=== PATIENT | female | born 1935 | race Caucasian/White ===

== ENCOUNTER 2018-01-11 15:18 | Emergency (ER) | payer OTHER ==
[~2018-01-11] VITALS: Ht 147.3 cm; Wt 72.1 kg
[2018-01-11] MEDS ORDERED: PRINIVIL20 MG PO (15:32)
[2018-01-11] MEDS ORDERED: AMILORIDE HCL-1 EACH PO (15:33)
[2018-01-11] MEDS ORDERED: AMITRIPTYLINE100 MG PO (15:34)
[2018-01-11] MEDS ORDERED: KLOR-CON 1010 MEQ PO (15:34)
[2018-01-11 16:23] LABS: ABSOLUTE BASOPHILS 0.1 thou/uL (0.0-0.2); ABSOLUTE EOSINOPHILS 0.3 thou/uL (0.0-0.7); ABSOLUTE NEUTROPHILS 9.5 thou/uL (1.6-8.1); BASOPHILS 0.7 %; EOSINOPHILS 2.1 %; HEMATOCRIT 38.8 % (37.0-47.0); HEMOGLOBIN 12.7 gm/dL (12.0-15.0); LYMPHOCYTES 15.7 %; MCHC 32.7 g/dL (28.0-37.0); MCV 91.7 fL (80.0-100.0); MONOCYTES 7.6 %; MPV 10.3 fl. (7.2-11.1); NUCLEATED RBCS 0 /100WBC; PLATELET COUNT* 140 thou/uL (150-400); POLYS 73.9 %; RBC 4.23 mil/uL (4.20-5.00); RDW-CV 14.7 % (10.5-14.5); WBC 12.8 thou/uL (4.0-11.0)
[2018-01-11 16:27] LABS: CALCIUM 8.8 mg/dL (8.5-10.1); CREATININE 2.7 mg/dL (0.6-1.3); POTASSIUM 4.1 mmol/L (3.5-5.1)
[2018-01-11 16:32] LABS: ALBUMIN 3.4 g/dL (3.4-5.0); TOTAL BILIRUBIN 0.5 mg/dL (<0.1-1.0); TOTAL PROTEIN 7.5 g/dL (6.4-8.2)
[2018-01-11 17:22] LABS: URINE BILIRUBIN NEGATIVE (Negative); URINE BLOOD NEGATIVE (Negative); URINE CLARITY CLEAR; URINE COLOR YELLOW; URINE GLUCOSE-RANDOM NEGATIVE (Negative); URINE KETONES NEGATIVE (Negative); URINE NITRITE-REFLEX NEGATIVE (Negative); URINE PROTEIN NEGATIVE (Negative); URINE SPECIFIC GRAVITY >= 1.030 (1.005-1.030); URINE UROBILINOGEN 0.2 E.U./dl (0.2-1.0)
[2018-01-11 17:23] LABS: URINE LEUKOCYTES-REFLEX 2+ (Negative)
[2018-01-11 17:28] LABS: BACTERIA-REFLEX >30 Many /HPF (None Seen); CASTS None Seen /LPF (None Seen); CRYSTALS None Seen /LPF (None Seen); SQUAMOUS >10 Many /LPF (0-3); URINE RBC 3-10 Few /HPF (0-2)
[2018-01-11] MEDS ORDERED: KEFLEX500 M1 PO (17:32)
[2018-01-11 17:53] VITALS: BP 116/44
--- NOTE | 2018-01-12 17:03 | EKG ---
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 : 1935 Requested By: Ita Velez Order Number: [id number] MD: Nader Quintana Measurements Intervals [place] Rate: 95 P: 24 RI: 183 QRS: -20 QRSD: 89 T: 69 QT: 401 QTc: 504 Interpretive Statements Sinus rhythm Inferior infarct, old Abnormal lateral Q waves Anterior infarct, old Prolonged QT interval No previous ECG available for comparison Electronically Signed On 01-12-2018 17:03:10 CDT by Nader Quintana [email or web address] <ELECTRONICALLY SIGNED> By: Nader Quintana MD, [facility] 01/12/18 1703 1558 1558 Nader Quintana MD, FAC /EPI
== END 2018-01-11 17:54 ==
LOC: M.ERS 15:18
PROVIDERS: Personal Emergency Response Attendant
DX: N39.0 Urinary tract infection, site not specified (principal); J45.909 Unspecified asthma, uncomplicated

== ENCOUNTER 2018-12-21 06:33 | Inpatient (IN) | payer OTHER ==
[~2018-12-21] VITALS: Ht 147.3 cm; Wt 74.4 kg
[~2018-12-21 06:33] MED LIST: AMILORIDE HCL-1 EACH PO; AMITRIPTYLINE100 MG PO; KEFLEX500 M1 PO; KLOR-CON 1010 MEQ PO; PRINIVIL20 MG PO
[2018-12-21 06:34] VITALS: BP 150/80
[2018-12-21 06:57] LABS: ABSOLUTE BASOPHILS 0.1 thou/uL (0.0-0.2); ABSOLUTE EOSINOPHILS 0.3 thou/uL (0.0-0.7); ABSOLUTE LYMPHOCYTES 1.4 thou/uL (0.8-5.3); ABSOLUTE MONOCYTES 0.8 thou/uL (0.0-1.2); ABSOLUTE NEUTROPHILS 7.2 thou/uL (1.6-8.1); EOSINOPHILS 2.7 %; HEMATOCRIT 33.8 % (37.0-47.0); HEMOGLOBIN 10.9 gm/dL (12.0-15.0); LYMPHOCYTES 13.9 %; MCH 29.5 pg (26.0-34.0); MCHC 32.3 g/dL (28.0-37.0); MCV 91.3 fL (80.0-100.0); MONOCYTES 8.5 %; NUCLEATED RBCS 0 /100WBC; PLATELET COUNT* 215 thou/uL (150-400); POLYS 73.9 %; RBC 3.71 mil/uL (4.20-5.00); RDW-CV 15.3 % (10.5-14.5); WBC 9.7 thou/uL (4.0-11.0)
[2018-12-21 07:00] LABS: ANION GAP 14 mmol/L (7-16); BUN 18 mg/dL (7-18); CALCIUM 8.4 mg/dL (8.5-10.1); CHLORIDE 102 mmol/L (98-107); CO2 24 mmol/L (21-32); CREATININE 1.6 mg/dL (0.6-1.3); GLUCOSE 183 mg/dL (70-99); POTASSIUM 3.1 mmol/L (3.5-5.1); SODIUM 140 mmol/L (136-145)
[2018-12-21 07:04] LABS: INR 1.2; PROTIME 12.7 Seconds (9.20-11.50)
[2018-12-21 07:11] LABS: ALBUMIN 2.8 g/dL (3.4-5.0); ALKALINE PHOSPHATASE 83 U/L (46-116); NT-PRO BRAIN NAT PEPTIDE 13669 pg/mL (<300); SGOT 18 U/L (15-37); SGPT 13 U/L (30-65); TOTAL BILIRUBIN 0.8 mg/dL (<0.1-1.0); TOTAL PROTEIN 7.2 g/dL (6.4-8.2); TROPONIN-I LEVEL <0.06 ng/mL (<0.06)
--- NOTE | 2018-12-21 08:24 | NUR ---
REPORT GIVEN TO DYLAN MORALES WHO IS TO ASSUME PT CARE INPATIENT NURSE.
[2018-12-21 08:25] VITALS: BP 123/71
[2018-12-21 08:40] VITALS: BP 164/78
[2018-12-21 15:32] VITALS: BP 126/54
--- NOTE | 2018-12-21 19:53 | NUR ---
I ASSUMED CARE OF THE PATIENT AT 0820 AN ADMISSION FROM ED. SHE IS ALERT AND ORIENTED X4 AND IS UP WITH ASSIST OF 1, BUT IS CURRENTLY ON BEDREST. SHE HAS BEEN SHORT OF AIR SINCE SATURDAY, AND HAS NO CHEST PAIN. SHE HAS A DVT IN HER LEFT LEG AND SHE IS ON BEDREST (SEE RADIOLOGY REPORT). SHE IS ALLOWED TO USE THE COMMODE. HER DAUGHTER IS THE DON AT [facility]. PATIENT EATS WELL AND IS ON 4 LITERS OF OXYGEN. WILL CONTINUE TOMORROW.
[2018-12-21 19:55] VITALS: BP 131/68
[2018-12-22] VITALS: BP 112/52
[2018-12-22 04:00] VITALS: BP 119/68
--- NOTE | 2018-12-22 05:12 | NUR ---
PATIENT PROGRESSING TOWARDS GOALS: PATIENT STATES "LEFT LEG SWELLING IS IMPROVED." DENIES PAIN EXCEPT WHEN TRANSFERRING TO BSC. PATIENT'S SOA ALSO IMPROVED AND O2 SATURATION MAINTAINED >92% ON 4L O2 NC. ELECTROLYTES BEING REPLACED AND REDRAWN PER PROTOCOL. PATIENT AWARE OF PLAN OF CARE AND VERBALIZES UNDERSTANDING. CALL LIGHT WITHIN REACH
[2018-12-22 08:30] VITALS: BP 130/60
[2018-12-22 09:11] LABS: HEMATOCRIT 31.7 % (37.0-47.0); HEMOGLOBIN 10.5 gm/dL (12.0-15.0); MCHC 33.1 g/dL (28.0-37.0); MCV 90.5 fL (80.0-100.0); MPV 8.8 fl. (7.2-11.1); NUCLEATED RBCS 0 /100WBC; PLATELET COUNT* 239 thou/uL (150-400); RDW-CV 15.4 % (10.5-14.5); WBC 11.8 thou/uL (4.0-11.0)
[2018-12-22 09:20] LABS: CALCIUM 7.9 mg/dL (8.5-10.1); CREATININE 1.8 mg/dL (0.6-1.3); POTASSIUM 4.4 mmol/L (3.5-5.1)
[2018-12-22 10:14] LABS: ABSOLUTE LYMPHOCYTES 1.2 thou/uL (0.8-5.3); ABSOLUTE MONOCYTES 0.2 thou/uL (0.0-1.2); ABSOLUTE NEUTROPHILS 10.4 thou/uL (1.6-8.1); PLATELET ESTIMATE ADEQUATE
[2018-12-22 12:00] VITALS: BP 112/54
--- NOTE | 2018-12-22 13:34 | NUR ---
Pt is A&O. Resides at home alone. Independent. Supportive family. No home o2. Hx of HH. No hx of SNF. Goal is home at dc. Following.
--- NOTE | 2018-12-22 13:36 | 2DMMODE ---
[place] [address] 2 D/M-MODE ECHOCARDIOGRAM Name: GIGI JONES Room: [address] IN .R.#: [id number] Admission: 12/21/18 Attend Phys: Sathish Luque, Discharge: Date of : 37 Date of Service: 12/22/18 1336 Report #: [id number] THIS REPORT FOR: //name// APPROVED REPORT Study performed: 12/22/2018 10:33:40 EXAM: Comprehensive 2D, Doppler, and color-flow Echocardiogram Patient Location: Bedside BSA: 1.63 HR: 91 bpm BP: 119/68 mmHg Other Information Study Quality: Fair Indications Congestive Heart Failure 2D Dimensions IVSd: 15.18 (7-11mm) LVOT Diam: 17.45 (18-24mm) LVDd: 53.62 mm PWd: 16.06 (7-11mm) Ascending Ao: 32.79 (22-36mm) LVDs: 39.87 (25-40mm) Aortic Root: 29.48 mm Volumes Left Atrial Volume (Systole) LA ESV Index: 33.10 mL/m2 Aortic Valve AoV Peak Juan.: 1.01 m/s AO Peak Gr.: 4.12 mmHg LVOT Max P.32 mmHg AO Mean Gr.: 2.38 mmHg LVOT Mean P.80 mmHg LVOT Max V: 0.57 m/s AO V2 VTI: 21.31 cm LVOT Mean V: 0.42 m/s GEM (VTI): 1.44 cm2 LVOT V1 VTI: 12.80 cm Mitral Valve E/A Ratio: 0.97 MV Decel. Time: 209.27 ms MV E Max Juan.: 1.03 m/s MV PHT: 60.69 ms MVA (PHT): 3.63 [place] [address] 2 D/M-MODE ECHOCARDIOGRAM Name: GIGI JONES Room: [address] IN ..#: [id number] Admission: 12/21/18 Attend Phys: Sathish Luque, Discharge: Date of : 37 Date of Service: 12/22/18 1336 Report #: [id number] TDI E/Lateral E': 10.30 E/Medial E': 12.88 Medial E' Juan.: 0.08 m/s Lateral E' Juan.: 0.10 m/s Pulmonary Valve PV Peak Juan.: 0.73 m/s PV Peak Gr.: 2.13 mmHg Tricuspid Valve RAP Estimate: 5.00 mmHg TR Peak Gr.: 35.96 mmHg RVSP: 40.96 mmHg PA Pressure: 40.96 mmHg Left Ventricle The left ventricle is normal size. severe hypokinesis of the distal anteroseptal wall and apex Mild concentric left ventricular hypertrophy. Left ventricular systolic function is moderately decreased. Left ventricular apical thrombus. LVEF is 35-40%. Right Ventricle The right ventricle is normal size. The right ventricular systolic function is normal. Atria Left atrium is mildly dilated. Interatrial septum not well visualized. The right atrium size is normal. Aortic Valve The Aortic valve is sclerotic. No aortic regurgitation is present. There is no aortic valvular stenosis. Mitral Valve Mitral valve leaflets are mildly thickened. Moderate mitral regurgitation. No evidence of mitral valve stenosis. Tricuspid Valve The tricuspid valve is normal in structure. Mild tricuspid regurgitation. estimated pa pressure 40 mm Hg Pulmonic Valve The pulmonary valve is normal in structure. There is no pulmonic valvular regurgitation. Great Vessels The aortic root is normal in size[place] [address] 2 D/M-MODE ECHOCARDIOGRAM Name: GIGI JONES Room: [address] IN [facility]#: [id number] Admission: 12/21/18 Attend Phys: Sathish Luque, Discharge: Date of : 37 Date of Service: 12/22/18 1336 Report #: [id number] visualized. Pericardium There is no pericardial effusion. <Conclusion> Mild concentric left ventricular hypertrophy. severe hypokinesis of the distal anteroseptal wall and apex Left ventricular apical thrombus. LVEF is 35-40%. Left atrium is mildly dilated. The Aortic valve is sclerotic. Moderate mitral regurgitation. Mild tricuspid regurgitation. estimated pa pressure 40 mm Hg <ELECTRONICALLY SIGNED> By: Rich Robles MD, [facility] 12/22/18 1336 1336 1336 Rich Robles MD, FAC /INF
--- NOTE | 2018-12-22 14:34 | NUR ---
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 WOUND MEASURES 1.3X1X0.3. MOIST RED, NON-GRANULAR WOUND BED TO APPROXIMATELY 60%, 40% YELLOW, NON-VIABLE TISSUE. CHRISTI-WOUND INTACT. CLEANSED WITH WOUND CLEANSER, PATTED DRY. SKIN PREPPED. APPLIED AQUACEL AG TO WOUND BED AND COVERED WITH EXUDERM THEN TEGADERM. TOLERATED DRESSING CHANGE WELL. EDUCATED PATIENT ON DRESSING SELECTION, TURNING, AND NUTRITION FOR WOUND HEALING, COMMUNICATED UNDERSTANDING. PATIENT TURNED HERSELF TO THE RIGHT SIDE APPRORPIATELY OFFLOADING THE AREA. RECOMMEND Q3 DAY DRESSING CHANGES FOLLOW UP IN WOUND CENTER IF NEEDED ENCOURAGE GOOD NUTRTION/HYDRATION FOR WOUND HEALING TURN Q2 HOURS, KEEP OFF WOUND LIMIT LAYERS OF LINEN UNDER PATIENT LIMIT HOB <30 DEGREES IF PATIENT CAN TOLERATE
--- NOTE | 2018-12-22 14:46 | EKG ---
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: : 1935 Requested By: Peri Bullock Order Number: [id number] MD: Rich Robles Measurements Intervals [place] Rate: 111 P: 20 SC: 153 QRS: 5 QRSD: 96 T: 7 QT: 360 QTc: 489 Interpretive Statements Sinus tachycardia Abnormal inferior Q waves Anterior infarct, old Borderline ST depression, lateral leads Compared to ECG 01/11/2018 15:58:36 Sinus rhythm no longer present Prolonged QT interval no longer present Myocardial infarct finding still present Electronically Signed On 12-22-2018 14:46:26 CDT by Rich Robles [email or web address] <ELECTRONICALLY SIGNED> By: Rich Robles MD, [facility] 12/22/18 1446 0639 0639 Rich Robles MD, [facility] /EPI
[2018-12-22 16:39] VITALS: BP 126/48
--- NOTE | 2018-12-22 19:15 | NUR ---
PT REMAINS FREE OF PAIN, ON BEDREST, ONLY UP TO BSC. IV REMAINS IN RIGHT HAND, MAG INFUSING PER PROTOCOL. CALLS APPROPRIATLY FOR NEEDS. WILL CONTINUE TO MONITIOR.
[2018-12-22 19:50] VITALS: BP 134/74
[2018-12-22 20:58] LABS: URINE BILIRUBIN NEGATIVE (Negative); URINE BLOOD TRACE (Negative); URINE CLARITY CLEAR; URINE COLOR YELLOW; URINE GLUCOSE-RANDOM NEGATIVE (Negative); URINE KETONES NEGATIVE (Negative); URINE LEUKOCYTES-REFLEX NEGATIVE (Negative); URINE NITRITE-REFLEX NEGATIVE (Negative); URINE PROTEIN NEGATIVE (Negative); URINE SPECIFIC GRAVITY 1.025 (1.005-1.030); URINE UROBILINOGEN 0.2 E.U./dl (0.2-1.0)
[2018-12-23] VITALS: BP 113/59
[2018-12-23 04:00] VITALS: BP 121/76
--- NOTE | 2018-12-23 05:30 | NUR ---
PT CARE ASSUMED AT 1930. SAT MAINTIANED IN O2. GETS SOB WITH EXERTION. CALL LIGHT WITHIN REACH AND BED IN LOW POSITION. C/O PAIN, MEDICATION GIVEN PER EMAR. HOURLY ROUNDING DONE FOR PT SAFETY.
[2018-12-23 05:48] LABS: ANION GAP 11 mmol/L (7-16); BUN 46 mg/dL (7-18); CALCIUM 8.5 mg/dL (8.5-10.1); CHLORIDE 101 mmol/L (98-107); CHOLESTEROL 206 mg/dL (<200); CO2 26 mmol/L (21-32); CREATININE 1.8 mg/dL (0.6-1.3); GLUCOSE 201 mg/dL (70-99); HDL CHOLESTEROL 36 mg/dL (>40); LDL CHOLESTEROL 148 mg/dL (<100); POTASSIUM 4.5 mmol/L (3.5-5.1); SODIUM 138 mmol/L (136-145); TC:HDL 5.7 Ratio (Not establshd); TRIGLYCERIDE 114 mg/dL (<150); VLDL 23 mg/dL (<40)
[2018-12-23 05:50] LABS: SERUM ASSESSMENT Clear
[2018-12-23 08:00] VITALS: BP 136/69
--- NOTE | 2018-12-23 11:18 | NUR ---
Nutrition: Pt assessed for stage III wound on buttocks. Wt: 163#. 2gm Na diet. RX: lisinopril, statin, insulin. H/o DM, HLD, HTN, CKD. Labs: BUN 46, cr 1.8, GFR 27, alb 2.8, prealb 11.6, BG 179. Good appetite. RD will not order protein supplements at this time d/t renal FXN. GOALS: continue with good HBV protein at meal times, tight BG control for wound healing. Mild risk.
[2018-12-23 11:30] VITALS: BP 139/65
--- NOTE | 2018-12-23 14:01 | CON ---
[address] [address] CONSULTATION Name: GIGI JONES Room: [address] IN ..#: [id number] Admission: 12/21/18 Attend Phys: Sathish Luque MD Discharge: Date of : 37 Report #: [id number] THIS REPORT FOR: //name// CC: Sathish Begum DO DATE OF SERVICE: 12/22/2018 CARDIOLOGY CONSULTATION HISTORY OF PRESENT ILLNESS: The patient is an 83-year-old single white female who I was asked to see in the hospital today after she complained of being short of breath. The patient has a history of asthma and uses an inhaler periodically. She recently went on a car ride to [place]. When she returned, she noticed some swelling of her left foot and some pain in her left groin. Because of the increasing shortness of breath, she finally came to the Emergency Room yesterday and was admitted. She has noticed a cough. She denies a history of myocardial infarction or chest pain. She has had no racing of her heart or syncope. PAST MEDICAL HISTORY: Significant for hysterectomy, removal of breast cyst, and hypertension. MEDICATIONS: On admission yesterday consisted of amiloride, hydrochlorothiazide, amitriptyline, lisinopril and potassium. ALLERGIES: SHE HAS AN ALLERGY TO AN ANTIBIOTIC. FAMILY HISTORY: Father had congestive heart failure. SOCIAL HISTORY: She is , lives in [place], [place] by herself. No smoking. No alcohol abuse. REVIEW OF SYSTEMS: She has had no history of stroke, liver disease, kidney disease, cancer, psychiatric illness or chronic skin condition. She does wear glasses. PHYSICAL EXAMINATION: GENERAL: Revealed an elderly female lying in bed. She appeared in no distress. VITAL SIGNS: Show blood pressure 130/70 and pulse is 90. She is afebrile. HEENT: She was anicteric. Conjunctivae are pink. Mucous membranes moist. NECK: Veins do not appear distended. No carotid bruits. Neck supple. CHEST: Clear to auscultation. CARDIOVASCULAR: Regular rate and rhythm. ABDOMEN: [place] [address] CONSULTATION Name: GIGI JONES Room: [address]#: [id number] Admission: 12/21/18 Attend Phys: Sathish Luque MD Discharge: Date of : 37 Report #: [id number] EXTREMITIES: She has had no pitting edema. Dorsalis pedis pulse cannot be palpated. SKIN: Cool and dry. NEUROLOGICAL: Nonfocal. LYMPHATIC: No adenopathy. MUSCULOSKELETAL: No joint effusion. RADIOLOGICAL DATA: Her ECG on admission showed a sinus rhythm, evidence of previous anterior infarction. Her workup in the hospital, she actually had an echocardiogram done earlier today that showed an ejection fraction of 40%, left ventricular hypertrophy, anteroseptal and apical severe hypokinesis, apical thrombus noted, left atrial enlargement, aortic sclerosis and moderate mitral regurgitation. Her x-rays, she had a portable chest x-ray on admission yesterday that showed normal heart size, tortuous ____, and pulmonary vascular congestion. She had a V/Q scan of the lungs yesterday that showed no evidence of pulmonary embolus. Venous duplex scan of her legs done yesterday showed left lower extremity DVT from the left common into the femoropopliteal vein. No evidence of right leg DVT. LABORATORY DATA: Sodium 139, BUN 38, and creatinine 1.8, it was actually 2.7 a year ago. Her troponin 0.06. BNP 13,669. TSH 1.8. White blood cell count 9.8, hemoglobin 10.5, and hematocrit 31.7. Her iron saturation 11% and ferritin 234. IMPRESSION AND RECOMMENDATIONS: 1. Deep venous thrombosis. Recommend anticoagulation. 2. Evidence of previous anterior infarction. I would recommend a beta nae and ARB . In light of her advanced age, I would not recommend stress testing. The patient has no history of angina. 3. Anemia. No history of bleeding. 4. Hypertension. The patient has been on an ARB and diuretic. <ELECTRONICALLY SIGNED> By: Rich Robles MD, FACC 12/23/18 1401 1528 [id number] Robles MD, FACC /nt
--- NOTE | 2018-12-23 15:30 | NUR ---
Spoke with Pt regarding disposition, Pt wants to dc to [facility] for skilled, Pt's dtr is the DON there, informed Pt that [facility] is not in network with her insurance. Spoke with the business office at [facility], they are to check and see if [employer] would all a once time contract. Discussed options, Pt requested that CM fax a SNF referral to [facility]. CM to fax therapy evals once complete. Anticipate that Pt will be ready to dc soon.
[2018-12-23 16:00] VITALS: BP 125/65
[2018-12-23 19:50] VITALS: BP 135/64
--- NOTE | 2018-12-23 20:01 | NUR ---
ASSUMED PT CARE AT 07, FULL ASSESMENT DONE CHARTED. PT A/O X4, ANXIOUS AT TIMES. UP WITH ASSIST TO BSC, SOA WITH ACTIVITY. VSS, SR ON THE . WOUND DRESSING IN TACT. PT REPOSITIONS SELF IN BED. PT HOPEFUL TO DC TO [facility] TOMORROW. REPORT GIVEN TO MADDI RICHARDSON.
[2018-12-24] VITALS: BP 142/72
[2018-12-24 04:00] VITALS: BP 141/66
[2018-12-24 04:08] LABS: GLYCOHEMOGLOBIN (HGB A1C) 7.2 % (4.8-5.6)
[2018-12-24 04:53] LABS: ABSOLUTE LYMPHOCYTES 0.8 thou/uL (0.8-5.3); ABSOLUTE MONOCYTES 0.4 thou/uL (0.0-1.2); ABSOLUTE NEUTROPHILS 11.7 thou/uL (1.6-8.1); BASOPHILS 0.1 %; HEMATOCRIT 31.5 % (37.0-47.0); HEMOGLOBIN 10.1 gm/dL (12.0-15.0); LYMPHOCYTES 6.3 %; MCV 90.8 fL (80.0-100.0); MONOCYTES 2.9 %; MPV 9.6 fl. (7.2-11.1); NUCLEATED RBCS 0 /100WBC; PLATELET COUNT* 278 thou/uL (150-400); POLYS 90.7 %; RBC 3.47 mil/uL (4.20-5.00); RDW-CV 15.4 % (10.5-14.5); WBC 12.9 thou/uL (4.0-11.0)
[2018-12-24 05:10] LABS: ALBUMIN 2.6 g/dL (3.4-5.0); CREATININE 1.7 mg/dL (0.6-1.3); POTASSIUM 4.2 mmol/L (3.5-5.1); TOTAL BILIRUBIN 0.3 mg/dL (<0.1-1.0); TOTAL PROTEIN 6.5 g/dL (6.4-8.2)
--- NOTE | 2018-12-24 07:31 | NUR ---
PT CARE ASSUMED AT 1930. SAT MAINTAINED IN O2. CALL LIGHT WITHIN REACH AND BED IN LOW POSITION. DENIES PAIN. SOB WITH EXERTION. HOURLY ROUNDING DONE FOR PT SAFETY.
[2018-12-24 08:28] VITALS: BP 123/63
--- NOTE | 2018-12-24 13:49 | NUR ---
CONTINUE TO FOLLOW, PT HAS ORDERS TO DC TO SNF. PT STILL WANTING TO GO TO [facility] WHERE HER DTR WORKS. CALL TO [facility]. SHE STATED THEY WERE WAITING TO HEAR BACK FROM INS. CALL TO [facility] TO UPDATE. THEY ARE PT'S SECOND CHOICE. STILL AWAITING PT/OT TO SEE PT AND SEND EVALS IN FOR INS AUTH. CALL TO [facility] TO ASSIST WITH GETTING THERAPY TO SEE PT
[2018-12-24 15:57] VITALS: BP 138/65
[2018-12-24 20:00] VITALS: BP 136/57
[2018-12-25] VITALS: BP 129/57
[2018-12-25 04:00] VITALS: BP 131/61
--- NOTE | 2018-12-25 07:40 | NUR ---
PT CARE ASSUMED AT 1930. SAT MAINTAINED IN O2. ALERT AND ORIENTED X4. CALL LIGHT WITHIN REACH AND BED IN LOW POSITION. CALL LIGHT WITHIN REACH AND BED IN LOW POSITION. HOURLY ROUNDING DONE FOR PT SAFETY. DENIES PAIN. SOB WITH EXERTION.
[2018-12-25 08:00] VITALS: BP 133/50
--- NOTE | 2018-12-25 09:27 | NUR ---
SPOKE WITH NAMAN, INSURANCE AUTH FOR SNF IS STILL PENDING. NO RETURN CALL FROM DTR YET.
[2018-12-25] MEDS ORDERED: CARVEDILOL3.125 MG PO (10:35)
[2018-12-25] MEDS ORDERED: LIPITOR40 MG PO (10:36)
[2018-12-25] MEDS ORDERED: ALBUTEROL2.5 MG/31 INH (10:39)
[2018-12-25] MEDS ORDERED: ELIQUIS5 MG PO (10:43)
[2018-12-25] MEDS ORDERED: PREDNISONE 10 M10 MG PO (10:46)
[2018-12-25] MEDS ORDERED: HUMALOG100 UNIT/1 SUBQ (10:53)
[2018-12-25 12:00] VITALS: BP 136/79
[2018-12-25 16:00] VITALS: BP 145/112
[2018-12-25 20:00] VITALS: BP 105/66
[2018-12-26] VITALS: BP 139/69
[2018-12-26 04:00] VITALS: BP 138/77
--- NOTE | 2018-12-26 05:33 | NUR ---
ASSUMED CARE OF PT AFTER REPORT AT 1930. PT A&OX4. VSS. PHYSICAL ASSESSMENT COMPLETED AND CHARTED. PT ON O2 AT 2L NC. PT TRACING SR ON TELE. PT UPSTANDBY TO BSC. PT DENIES ANY PAIN OR SOA. PT REFUSING TURNS EVEN AFTER EDUCATION. PT ABLE TO SLEEP WELL. CALL LIGHT WITHIN REACH.
[2018-12-26 12:22] VITALS: BP 139/61
--- NOTE | 2018-12-26 12:27 | NUR ---
SPOKE WITH [facility], THEY HAVE INSURANCE AUTH AND CAN ACCEPT PT TODAY. ORDERS FAXED TO [facility]. DANNY SET UP W/C VAN FOR 2PM. CHART COPIED. RN HAS NUMBER TO CALL REPORT PT STATES SHE SPOKE WITH HER DTR ALREADY, DTR WORKS AT [facility]
== END 2018-12-26 14:22 | DRG 299 ==
LOC: M.ERS 06:33 → M.2W 07:37 → M.TBA-ER 07:37 → M.2W 08:34
PROVIDERS: Emergency Medicine; Internal Medicine Cardiovascular Disease; ADMIT Internal Medicine
DX: I82.412 Acute embolism and thrombosis of left femoral vein (principal); J96.21 Acute and chronic respiratory failure with hypoxia; I50.43 Acute on chronic combined systolic (congestive) and diastolic (congestive) heart failure; R65.11 Systemic inflammatory response syndrome (SIRS) of non-infectious origin with acute organ dysfunction; J44.1 Chronic obstructive pulmonary disease with (acute) exacerbation; L03.116 Cellulitis of left lower limb; N17.9 Acute kidney failure, unspecified; J81.1 Chronic pulmonary edema; I13.0 Hypertensive heart and chronic kidney disease with heart failure and stage 1 through stage 4 chronic kidney disease, or unspecified chronic kidney disease; I82.432 Acute embolism and thrombosis of left popliteal vein; J45.909 Unspecified asthma, uncomplicated; D64.9 Anemia, unspecified; E87.6 Hypokalemia; N18.9 Chronic kidney disease, unspecified; E11.22 Type 2 diabetes mellitus with diabetic chronic kidney disease; I25.5 Ischemic cardiomyopathy; I25.2 Old myocardial infarction; Z90.710 Acquired absence of both cervix and uterus; Z82.49 Family history of ischemic heart disease and other diseases of the circulatory system; Z79.899 Other long term (current) drug therapy

== ENCOUNTER 2019-03-25 16:06 | Inpatient (IN) | payer OTHER ==
[~2019-03-25] VITALS: Ht 147.3 cm; Wt 63.0 kg
[~2019-03-25 16:06] MED LIST changes: +ALBUTEROL2.5 MG/31 INH; +CARVEDILOL3.125 MG PO; +ELIQUIS5 MG PO; +HUMALOG100 UNIT/1 SUBQ; +LIPITOR40 MG PO; +PREDNISONE 10 M10 MG PO
[2019-03-25 16:09] VITALS: BP 148/63
[2019-03-25] MEDS ORDERED: FUROSEMIDE 20 M20 MG PO (16:15)
[2019-03-25 16:49] LABS: ABSOLUTE BASOPHILS 0.1 thou/uL (0.0-0.2); ABSOLUTE EOSINOPHILS 0.4 thou/uL (0.0-0.7); ABSOLUTE LYMPHOCYTES 1.9 thou/uL (0.8-5.3); ABSOLUTE MONOCYTES 1.2 thou/uL (0.0-1.2); ABSOLUTE NEUTROPHILS 8.6 thou/uL (1.6-8.1); BASOPHILS 1.2 %; EOSINOPHILS 3.7 %; HEMATOCRIT 36.8 % (37.0-47.0); HEMOGLOBIN 12.2 gm/dL (12.0-15.0); LYMPHOCYTES 15.6 %; MCH 30.3 pg (26.0-34.0); MCHC 33.3 g/dL (28.0-37.0); MCV 91.2 fL (80.0-100.0); MONOCYTES 9.5 %; MPV 9.9 fl. (7.2-11.1); NUCLEATED RBCS 0 /100WBC; PLATELET COUNT* 181 thou/uL (150-400); RBC 4.04 mil/uL (4.20-5.00); RDW-CV 15.7 % (10.5-14.5); WBC 12.3 thou/uL (4.0-11.0)
[2019-03-25 16:53] LABS: CREATININE 1.5 mg/dL (0.6-1.3)
[2019-03-25 16:55] LABS: APTT 39.4 Seconds (25.0-31.3); INR 1.2; PROTIME 12.6 Seconds (9.20-11.50)
[2019-03-25 17:03] LABS: POTASSIUM 2.8 mmol/L (3.5-5.1)
[2019-03-25 17:09] LABS: ALBUMIN 3.5 g/dL (3.4-5.0); TOTAL BILIRUBIN 0.6 mg/dL (<0.1-1.0); TOTAL PROTEIN 7.9 g/dL (6.4-8.2)
--- NOTE | 2019-03-25 17:20 | NUR ---
PT BACK FROM ULTRASOUND VIA STRETCHER
--- NOTE | 2019-03-25 18:28 | NUR ---
REPORT GIVEN TO DYLAN REBOLLEDO WHO IS TO ASSUME PT CARE INPATIENT NURSE.
[2019-03-25 18:29] VITALS: BP 147/53
[2019-03-25 20:30] VITALS: BP 127/59
[2019-03-26 04:35] LABS: HEMATOCRIT 35.5 % (37.0-47.0); HEMOGLOBIN 11.7 gm/dL (12.0-15.0); MCH 29.8 pg (26.0-34.0); MCHC 32.9 g/dL (28.0-37.0); MCV 90.4 fL (80.0-100.0); MPV 10.4 fl. (7.2-11.1); RBC 3.92 mil/uL (4.20-5.00); RDW-CV 16.1 % (10.5-14.5); WBC 9.5 thou/uL (4.0-11.0)
[2019-03-26 04:56] LABS: ALBUMIN 3.1 g/dL (3.4-5.0); CALCIUM 8.4 mg/dL (8.5-10.1); CREATININE 1.2 mg/dL (0.6-1.3); MAGNESIUM 1.4 mg/dL (1.8-2.4); TOTAL BILIRUBIN 0.8 mg/dL (<0.1-1.0); TOTAL PROTEIN 6.9 g/dL (6.4-8.2)
[2019-03-26 04:59] LABS: POTASSIUM 2.9 mmol/L (3.5-5.1)
--- NOTE | 2019-03-26 06:19 | NUR ---
PATIENT ARRIVED ON FLOOR FROM ER ABOUT 15 MINUTES PRIOR TO SHIFT CHANGE. PATIENT ADMISSION HISTORY AND ASSESSMENT WAS COMPLETED CHARTED. PATIENT WAS GIVEN TYLENOL ONCE FOR PAIN. WILL CONTINUE TO MONITOR.
[2019-03-26 10:10] VITALS: BP 134/57
--- NOTE | 2019-03-26 11:42 | EKG ---
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 : 1935 Requested By: Rigoberto Burris Order Number: [id number] MD: Rich Robles Measurements Intervals [place] Rate: 84 P: -79 FL: 135 QRS: -23 QRSD: 118 T: 140 QT: 412 QTc: 488 Interpretive Statements Sinus or ectopic atrial rhythm Ventricular premature complex Nonspecific intraventricular conduction delay Inferior infarct, old Extensive anterior infarct, old Compared to ECG 12/21/2018 06:39:01 Ventricular premature complex(es) now present Sinus tachycardia no longer present Myocardial infarct finding still present Electronically Signed On 03-26-2019 11:42:19 QUALITY ASSURANCE MONITOR FINAL by Rich Robles [email or web address] <ELECTRONICALLY SIGNED> By: Rich Robles MD, [facility]ACC 03/26/19 1142 1640 1640 Rich Robles MD, FACC /EPI
[2019-03-26 17:00] VITALS: BP 147/92
--- NOTE | 2019-03-26 18:52 | NUR ---
PLEASANT AND COOPERATIVE THRU SHIFT. INDEP IN RM W/ FWW. GAIT NOTED SLOW AND STEADY. IV SITE NOTED WNL. PATIENT STATES LLE FEELS BETTER, STATES LESS SWOLLEN THAN YESTERDAY. LT GREAT TOE AREA NOTED REDDEDNED AND SWOLLEN. O2 2L/NC, STATES ON O2 AT HOME WELL. CURRENTLY RESTING IN BEED. CALL LIGHT IN REACH. HRLY ROUNDS DONE. ~TJRN
[2019-03-26 19:45] VITALS: BP 115/60
--- NOTE | 2019-03-27 04:35 | NUR ---
PATIENT HAS REMAINED ALERT AND ORIENTED X 4 THROUGHOUT THE SHIFT AND RESTING QUIETLY ON HOURLY ROUNDS. UP WITH SAFE GAIT TO BR WITH WALKER. NO BM'S THIS SHIFT. DOES HAVE STRESS INCONTINENCE. PULL-UPS PROVIDED AT REQUEST. MAGNESIUM AND POTASSIUM REPLACED OVERNIGHT. REDRAW PENDING. ANTIBIOTICS PER ORDER. HAS DENIED NEED FOR PAIN MEDICATION. VITAL SIGNS STABLE. CONTINUE TO MONITOR.
[2019-03-27 06:57] LABS: MAGNESIUM 1.6 mg/dL (1.8-2.4); POTASSIUM 5.1 mmol/L (3.5-5.1)
[2019-03-27 07:50] VITALS: BP 137/53
--- NOTE | 2019-03-27 19:32 | NUR ---
ASSUMED CARE OF PATIENT AT APPROX 0730. ALERT AND ORIENTED X4. NO COMPLAINTS OF PAIN, NAUSEA, OR SOA. PATIENT UP WITH WALKER TO USE THE BATHROOM. PATIENT NOT VERY PLEASANT WITH STAFF TODAY, SENDING THEM OUT OF HER ROOM. PATIENT REFUSED HER ACCUCHECKS AND REFUSED THE DR ORDERED SCAN TODAY. PATIENT STATED THAT SHE IS GOING HOME TOMORROW AND DOESN'T NEED ANY OF THAT. CALL LIGHT PLACED IN REACH. PATIENT REFUSED FALL PRTECAUTIONS. HOURLY ROUNDS COMPLETED. WILL CONTINUE WITH PLAN OF CARE BEST WE CAN BASED ON PATIENTS WISHES.
[2019-03-27 20:15] VITALS: BP 142/92
[2019-03-28 07:57] VITALS: BP 141/73
--- NOTE | 2019-03-28 09:07 | NUR ---
ASSUMED CARE OF PT AROUND 0730 THIS AM. REFER TO ASSESSMENT. ATTEMPTING TO COMPLETE CT ABDOMEN THIS AM. CONTACTED RADIOLOGY STAFF TO COMPLETE SOON POSSIBLE WHILE PT NPO. THE SOONEST SHE CAN GET IN IS 1000. PT INCREASINGLY GETTING AGITATED THAT SHE HAS TO WAIT. ATTEMPTED TO EDUCATE PT. ANTICIPATE DC HOME THIS AFTERNOON. NO OTHER CONCERNS AT THIS TIME. CLWR. WCTM.
--- NOTE | 2019-03-28 09:29 | NUR ---
CALLED THE [facility] IN [place] FOR MEDICATION COVERAGE ON XARELTO. PER PHARMACY 15MG BID X 21DAYS COPAY IS:$32.97. 20MG DAILY X 6 MOS IS $47.00 MONTHLY. NO PREAUTHORIZATION IS REQUIRED. DR. CASTELLON NOTIFIED OF MEDICATION COVERAGE.
[2019-03-28] MEDS ORDERED: XARELTO20 MG PO (09:53)
[2019-03-28] MEDS ORDERED: DOXYCYCLINE 10100 MG PO (09:53)
[2019-03-28 11:01] VITALS: BP 141/73
--- NOTE | 2019-03-28 14:27 | NUR ---
PT GIVEN DC INSTRUCTIONS AND VERBALIZES UNDERSTANDING. IV REMOVED INTACT. PT'S FRIEND IS GIVING HER A RIDE HOME. PT'S FRIEND BROUGHT HOME OXYGEN FOR TRANSPORTATION HOME. NO OTHER CONCERNS AT THIS TIME. CLWR. WCTM.
--- NOTE | 2019-03-28 14:33 | NUR ---
CONTACTED HEMATOLOGY/ONCOLOGY PHYSICIAN AND DISCUSSED DISCHARGE ORDERS WITH ON-CALL PHYSICIAN. DR. WAY OK WITH DISCHARGE AND FOLLOW UP WITH HIM NEEDED. NO OTHER CONCERNS AT THIS TIME.
--- NOTE | 2019-04-07 21:18 | CON ---
[address] [address] CONSULTATION Name: GIGI JONES Room: [address] IN M.R.#: [id number] Admission: 03/25/19 Attend Phys: Deedee Jewell MD Discharge: 03/28/19 Date of : 37 Report #: [id number] THIS REPORT FOR: //name// CC: Mark Ahmadi MD [facility] Deedee Jewell REQUESTING PHYSICIAN: Deedee Washington MD REASON FOR CONSULT: Recurrent/persistent DVT. HISTORY OF PRESENT ILLNESS: The patient is a very pleasant spunky 83-year-old female who was in the hospital in 11/2018 for left foot cellulitis, was also found to have a left leg DVT. At that time, she was placed on Eliquis and went home. The patient in the last 3 months has had around 24-pound unintentional weight loss and was admitted for recurrence of the cellulitis and was found to have persistent DVT. There is some question about compliance. Note that the patient was discharged here on about 12/26/2018, went to [facility], had fills for the Eliquis on 01/10, 02/04, and 03/23. The patient denies any headache, any breathing troubles more than usual, does feel like the redness of her left foot/lower leg is much improved compared to yesterday. She does have some diarrhea since she has been here, but not before. No blood in her urine or stool. She does say her last colonoscopy was maybe 5 years ago, not sure if she has ever had an EGD. Does not know if she has had a CAT scan. She thought she had, but I think she is thinking of the V/Q scan when she was here earlier in November. No dysuria. No new arm or leg swelling, except for that as mentioned above with the left foot. No heat or cold intolerance. No more wheezing. No spitting up of blood. PAST MEDICAL HISTORY: Appears to be notable for a recent finding of weak heart, cardiomyopathy and congestive heart failure with DVT. There may have been one in the distant past, want to clarify that. Also, had a history of UTI in the past. Also history of hysterectomy for fibroids in the past, history of asthma, history of hypertension and hyperlipidemia. 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 Nonsmoker, though there was some secondhand smoke. No significant alcohol. No family history of cancers or clots per her report. PHYSICAL EXAMINATION: GENERAL: The patient appears her stated age. VITAL SIGNS: Height is 4 feet 10 inches, 147.3 cm. Weight is 139 pounds. Note that back in November when she was here, the weight was reported as 164 pounds that is about a 25-pound difference. Recent blood pressure is 137/53 with a pulse of 94, respirations 19, [place]febrile [place] 98.1. [place] [address] CONSULTATION Name: GIGI JONES Room: [address] IN [facility]#: [id number] Admission: 03/25/19 Attend Phys: Deedee Jewell MD Discharge: 03/28/19 Date of : 37 Report #: [id number] MOOD: She is alert, conversant, and polite. NEUROLOGIC: Face is symmetrical, moving arms and legs. Speech and thought pattern appear to be normal. LUNGS: Clear respiratory motion without rhonchi, wheezes or rales. HEART: Appears regular rate. Oropharynx without injection, masses or leukoplakia. ABDOMEN: Slightly obese. No masses, nontender. EXTREMITIES: She does have some slight redness of her feet, looks like she probably has bunions that could benefit from surgery and may be getting some pressure in her feet from pressure on her shoes. LABORATORY DATA: Include a creatinine baseline of about 1.2, sugar was 168. Transaminases normal. Magnesium slightly low at 1.6, albumin 3.1 after hydration. In November, her TSH was normal at 1.88. Iron was slightly low in November with an iron of 25 percent, saturation 11, TIBC slightly low at 227. Ferritin was 234, folate 9.3. B12 elevated at 1,102. Coags this admit were protime of 12.6, INR 1.2, APTT of 39.4, white count 9.5, hemoglobin 11.3, MCV 90.4, platelets 157 with a fairly normal differential. Back in November, C-reactive protein quite elevated at 76. Ferritin may be acute phase reactant elevation. UA back in November did have trace blood back then. IMAGING: Includes recent chest x-ray that showed low lung volumes with some scarring. Ultrasound from 03/25, described persistent DVT throughout the left lower extremity involving the common femoral vein. It is somewhat similar to the exam on 12/21/2018. ASSESSMENT AND PLAN: 1. History of persistent left leg deep venous thrombosis. There is some question of compliance. I agree that switching to once a day Xarelto is a very reasonable option. She may be more compliant with this than Lovenox shots and it would be easier for her than going to get her INR checked as she is on Coumadin. Given the unexplained weight loss and also what may be iron deficiency, we will arrange for CAT scan of abdomen and pelvis to look for masses or lymphadenopathy. May also need to consider consulting GI given what may be iron deficiency and now weight loss. For now, cautiously continue with the Xarelto. 2. A 24-pound unintentional weight loss as the patient claims been eating the same amount. We will check CAT scan as above, may also need to consider colonoscopy. 3. Cellulitis on doxycycline. 4. History of cardiomyopathy. Continues cardiac meds. 5. Diabetes mellitus. Continues insulin and oral agents. 6. Asthma, emphysema, chronic obstructive pulmonary disease, continues [place] prednis[place] [address] CONSULTATION Name: GIGI JONES Room: [address] IN [facility].#: [id number] Admission: 03/25/19 Attend Phys: Deedee Jewell MD Discharge: 03/28/19 Date of : 37 Report #: [id number] 7. Hyperlipidemia. Has been on statins. We will be available with questions and continue to follow. <ELECTRONICALLY SIGNED> By: Rivera Wheat MD 04/07/19 [id number] Wheat MD /nt
== END 2019-03-28 14:29 | disposition home or self-care (01) | DRG 300 ==
LOC: M.ERS 16:06 → M.ORTHSURG 17:39 → M.TBA-ER 17:39 → M.ORTHSURG 18:40
PROVIDERS: Nurse Practitioner Psychiatric/Mental Health; ADMIT Internal Medicine
DX: I82.412 Acute embolism and thrombosis of left femoral vein (principal); N17.9 Acute kidney failure, unspecified; L03.116 Cellulitis of left lower limb; I13.0 Hypertensive heart and chronic kidney disease with heart failure and stage 1 through stage 4 chronic kidney disease, or unspecified chronic kidney disease; I50.22 Chronic systolic (congestive) heart failure; I42.9 Cardiomyopathy, unspecified; J96.11 Chronic respiratory failure with hypoxia; N18.3 Chronic kidney disease, stage 3 (moderate); E87.6 Hypokalemia; I82.512 Chronic embolism and thrombosis of left femoral vein; E78.5 Hyperlipidemia, unspecified; E11.22 Type 2 diabetes mellitus with diabetic chronic kidney disease; J43.9 Emphysema, unspecified; Z23 Encounter for immunization; Z79.899 Other long term (current) drug therapy; Z79.4 Long term (current) use of insulin; Z90.710 Acquired absence of both cervix and uterus; Z99.81 Dependence on supplemental oxygen; Z87.440 Personal history of urinary (tract) infections; Z91.14 Patient's other noncompliance with medication regimen

== ENCOUNTER 2019-08-28 16:34 | Emergency (ER) | payer OTHER ==
[~2019-08-28] VITALS: Ht 147.3 cm; Wt 71.7 kg
[~2019-08-28 16:34] MED LIST changes: +DOXYCYCLINE 10100 MG PO; +FUROSEMIDE 20 M20 MG PO; +XARELTO20 MG PO
[2019-08-28 17:21] LABS: ABSOLUTE EOSINOPHILS 0.4 thou/uL (0.0-0.7); ABSOLUTE LYMPHOCYTES 2.3 thou/uL (0.8-5.3); ABSOLUTE MONOCYTES 0.9 thou/uL (0.0-1.2); ABSOLUTE NEUTROPHILS 5.2 thou/uL (1.6-8.1); BASOPHILS 0.2 %; EOSINOPHILS 4.2 %; HEMATOCRIT 38.8 % (37.0-47.0); HEMOGLOBIN 13.1 gm/dL (12.0-15.0); LYMPHOCYTES 26.7 %; MCH 31.1 pg (26.0-34.0); MCHC 33.8 g/dL (28.0-37.0); MONOCYTES 9.8 %; MPV 10.1 fl. (7.2-11.1); NUCLEATED RBCS 0 /100WBC; PLATELET COUNT* 243 thou/uL (150-400); POLYS 59.1 %; RBC 4.22 mil/uL (4.20-5.00); RDW-CV 15.4 % (10.5-14.5); WBC 8.8 thou/uL (4.0-11.0)
[2019-08-28 18:04] LABS: CALCIUM 9.2 mg/dL (8.5-10.1); CREATININE 1.1 mg/dL (0.6-1.3); POTASSIUM 4.2 mmol/L (3.5-5.1)
[2019-08-28 18:15] LABS: ALBUMIN 3.4 g/dL (3.4-5.0); TOTAL BILIRUBIN 0.6 mg/dL (<0.1-1.0); TOTAL PROTEIN 7.2 g/dL (6.4-8.2)
[2019-08-28 19:04] VITALS: BP 134/70
--- NOTE | 2019-08-30 14:43 | EKG ---
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: ESCOBEDO : 1935 Requested By: Nigel Uriarte Order Number: [id number] MD: Nader Quintana Measurements Intervals [place] Rate: 80 P: 3 MO: 214 QRS: -18 QRSD: 100 T: 118 QT: 463 QTc: 535 Interpretive Statements Sinus rhythm with first-degree AV block Inferior infarct, old Anteroseptal infarct, age indeterminate Prolonged QT interval Compared to ECG 03/25/2019 16:40:11 Prolonged QT interval now present Ectopic atrial rhythm no longer present Ventricular premature complex(es) no longer present Intraventricular conduction delay no longer present Myocardial infarct finding still present Electronically Signed On 08-30-2019 14:41:41 CDT by Nader Quintana [email or web address] <ELECTRONICALLY SIGNED> By: Nader Quintana MD, [facility] 08/30/19 1441 1715 1715 Nader Quintana MD, [facility] /EPI
== END 2019-08-28 19:05 | disposition home or self-care (01) ==
LOC: M.ERS 16:34
PROVIDERS: Physician Assistant
DX: I82.512 Chronic embolism and thrombosis of left femoral vein (principal); I82.532 Chronic embolism and thrombosis of left popliteal vein; I82.542 Chronic embolism and thrombosis of left tibial vein; R94.31 Abnormal electrocardiogram [ECG] [EKG]; I11.0 Hypertensive heart disease with heart failure; I50.9 Heart failure, unspecified; J44.9 Chronic obstructive pulmonary disease, unspecified; J45.909 Unspecified asthma, uncomplicated; Z90.710 Acquired absence of both cervix and uterus; Z79.01 Long term (current) use of anticoagulants

== ENCOUNTER 2020-11-15 01:10 | Inpatient (IN) | payer OTHER ==
[~2020-11-15] VITALS: Ht 147.3 cm; Wt 65.8 kg
--- NOTE | ~2020-11-15 | EMS ---
[facility] [address] [place] [address] EMS Patient Care Report Name: GIGI JONES Room: [address] Peter#: [id number] Admission: 11/15/20 Attend Phys: Shanna Paige Discharge: Date of : 37 Report #: [id number] THIS REPORT FOR: //name// Report Transmitted: 11/17/2020 02:13 EMS Care Summary [facility] Incident [id number] @ 11/15/2020 00:16 Incident Location [address] [place] [address] Patient GIGI JONES Female, 85 Years 1935 Patient Address [address] [place] [address] Patient History Asthma,Congestive Heart Failure (CHF), Patient Allergies No known allergies, Patient Medications Amitriptyline, Lisinopril, Warfarin, Pantoprazole, Furosemide, Carvedilol, Amoxicillin, Chief Complaint RIGHT FOOT PAIN AND FLUID RETENTION Disposition Transported No Lights/[place] Dispatch Reason No Other Appropriate Choice Transported To [facility] Narrative Medic 1 was dispatched for a person with foot pain. Medic 1 arrived on the [facility] [address] [place] [address] EMS Patient Care Report Name: GIGI JONES Room: [address] Alexey RamiroRadha#: [id number] Admission: 11/15/20 Attend Phys: Shanna Paige Discharge: Date of : 37 Report #: [id number] scene and made pt. contact. Pt. is a 85 y/o female, sitting upright on the couch, AOx4 with a GCS of 15. C/C right foot pain and unable to ambulate since yesterday evening. Pt. has fluid retention to bilateral lower extremities, with redness to right ankle/foot and skin is warm to touch. Pt. has Hx. of CHF and is prescribed Lasix, pt. states that the swelling came on quickly. V/S obtained. Pt. denies any chest pain or discomfort. Pt. is on 2 lpm O2 at her residence. Pt. was transferred to the cot and secured. Pt. was loaded into the ambulance and secured. V/S obtained and monitored throughout the transport. A unsuccessful saline lock was attempted, 20GA to left AC. BGL was obtained, 238 mg/dl. 4 Lead ECG was obtained, Sinus Rhythm at a rate of 90 bpm. Pt. was made comfortable for transport. Receiving facility was contacted and report was given. Arrived at receiving facility, pt. was assigned to Bed #9 , and report was given to receiving nurse. Signatures obtained by pt. and receiving nurse. Medic 1 returned to service. Initial Vitals @00:44Glucose: 238, @00:49P: 90,SpO2: 94, @00:40P: 93,R: 18,BP: 123/51,GCS: 15,SpO2: 90,Revised Trauma: 12, @00:26P: 94,R: 18,BP: 128/72,GCS: 15,SpO2: 91,Revised Trauma: 12, @00:56P: 90,R: 18,BP: 125/59,GCS: 15,SpO2: 93,Revised Trauma: 12, @00:46P: 90,R: 18,BP: 113/44,GCS: 15,SpO2: 92,Revised Trauma: 12, @01:07P: 90,R: 18,BP: 128/109,GCS: 15,Revised Trauma: 12, Assessments @00:32MENTAL:Person Oriented,Time Oriented,Place Oriented,Event Oriented,SKIN:HEENT:LUNG SOUNDS:ABDOMEN:PELVIS//GI:EXTREMITIES:Right Leg: Edema,PULSE:NEURO:No Abnormalities, Impression Extremity Pain Procedures @00:44Saline Lock cc (20 ga) Site: Antecubital-LeftResponse: UnchangedFailed Timeline 00:14,Call Received 00:16,Dispatched 00:21,En Route 00:23,On Scene 00:24,At Patient 00:26,BP: 128/72 M,PULSE: 94,RR: 18 R,SPO2: 91 Ox,ETCO2: ,BG: ,PAIN: ,GCS: 15, 00:40,BP: 123/51 M,PULSE: 93,RR: 18 R,SPO2: 90 Ox,ETCO2: ,BG: ,PAIN: ,GCS: 15, 00:44,BP: / M,PULSE: ,RR: R,SPO2: Ox,ETCO2: ,B,PAIN: ,GCS: , [facility] [address] [place] [address] EMS Patient Care Report Name: GIGI JONES Room: [address] M.R.#: [id number] Admission: 11/15/20 Attend Phys: Shanna Paige Discharge: Date of : 37 Report #: [id number] 00:44,Saline Lock cc 20 ga Site: Antecubital-Left,Response: UnchangedFailed, 00:46,BP: 113/44 M,PULSE: 90,RR: 18 R,SPO2: 92 Ox,ETCO2: ,BG: ,PAIN: ,GCS: 15, 00:46,Depart Scene 00:49,BP: / M,PULSE: 90,RR: R,SPO2: 94 Ox,ETCO2: ,BG: ,PAIN: ,GCS: , 00:56,BP: 125/59 M,PULSE: 90,RR: 18 R,SPO2: 93 Ox,ETCO2: ,BG: ,PAIN: ,GCS: 15, 01:06,At Destination 01:07,BP: 128/109 M,PULSE: 90,RR: 18 R,SPO2: Ox,ETCO2: ,BG: ,PAIN: ,GCS: 15, 01:43,Call Closed Disclaimer v1.1 Copyright 2020 [employer] This EMS Care Summary contains data elements from the applicable legal record (which may be displayed differently). It is designed to provide pertinent information for the following purposes: continuity of care, clinical quality, and state data reporting. The complete legal record is available to ED staff and administrators of the receiving hospital in [employer] Patient Tracker. All data is provided "as is."
[2020-11-15 01:17] VITALS: BP 148/78
[2020-11-15 02:42] LABS: MPV 9.6 fl. (7.2-11.1)
[2020-11-15 02:43] LABS: NUCLEATED RBCS 0 /100WBC
[2020-11-15 02:46] LABS: ABSOLUTE BASOPHILS 0.1 thou/uL (0.0-0.2); ABSOLUTE EOSINOPHILS 0.3 thou/uL (0.0-0.7); ABSOLUTE LYMPHOCYTES 1.6 thou/uL (0.8-5.3); ABSOLUTE MONOCYTES 1.2 thou/uL (0.0-1.2); ABSOLUTE NEUTROPHILS 9.3 thou/uL (1.6-8.1); BASOPHILS 0.5 %; CALCIUM 8.9 mg/dL (8.5-10.1); CREATININE 1.4 mg/dL (0.6-1.3); EOSINOPHILS 2.2 %; HEMATOCRIT 38.9 % (37.0-47.0); HEMOGLOBIN 13.2 gm/dL (12.0-15.0); MCH 31.9 pg (26.0-34.0); MCHC 33.8 g/dL (28.0-37.0); MCV 94.2 fL (80.0-100.0); MONOCYTES 9.3 %; PLATELET COUNT* 208 thou/uL (150-400); POTASSIUM 3.1 mmol/L (3.5-5.1); RBC 4.13 mil/uL (4.20-5.00); RDW-CV 14.8 % (10.5-14.5); WBC 12.4 thou/uL (4.0-11.0)
[2020-11-15 02:50] LABS: URINE BILIRUBIN NEGATIVE (Negative); URINE BLOOD NEGATIVE (Negative); URINE CLARITY SL CLOUDY; URINE COLOR YELLOW; URINE GLUCOSE-RANDOM NEGATIVE (Negative); URINE KETONES NEGATIVE (Negative); URINE NITRITE-REFLEX NEGATIVE (Negative); URINE PROTEIN NEGATIVE (Negative); URINE UROBILINOGEN 0.2 E.U./dl (0.2-1.0)
[2020-11-15 02:57] LABS: ALBUMIN 3.3 g/dL (3.4-5.0); MAGNESIUM 1.3 mg/dL (1.8-2.4); TOTAL BILIRUBIN 1.1 mg/dL (<0.1-1.0); TOTAL PROTEIN 8.1 g/dL (6.4-8.2)
[2020-11-15 03:24] LABS: URINE LEUKOCYTES-REFLEX 2+ (Negative)
[2020-11-15 03:28] LABS: BACTERIA-REFLEX >30 Many /HPF (None Seen); CASTS None Seen /LPF (None Seen); CRYSTALS None Seen /LPF (None Seen); SQUAMOUS 0-3 Few /LPF (0-3); URINE RBC None Seen /HPF (0-2); URINE WBC-REFLEX >25 Many /HPF (0-5); WBC CLUMPS Few (None Seen)
[2020-11-15] MEDS ORDERED: PERIDEX 0.12%473 M1 SWISH&SPIT (04:05)
[2020-11-15 09:30] VITALS: BP 118/55
[2020-11-15 12:32] VITALS: BP 132/51
[2020-11-15 13:30] VITALS: BP 131/45
[2020-11-15 16:39] VITALS: BP 125/50
[2020-11-15 20:00] VITALS: BP 127/37
[2020-11-16 04:00] VITALS: BP 125/41
[2020-11-16 06:04] LABS: CHOLESTEROL 116 mg/dL (<200); HDL CHOLESTEROL 54 mg/dL (>40); LDL CHOLESTEROL 50 mg/dL (<100); TC:HDL 2.1 Ratio (Not establshd); TRIGLYCERIDE 64 mg/dL (<150); VLDL 13 mg/dL (<40)
[2020-11-16 06:17] LABS: SERUM ASSESSMENT Clear
[2020-11-16 06:25] LABS: URIC ACID* 9.6 mg/dL (2.6-7.2)
[2020-11-16 06:43] LABS: ABSOLUTE EOSINOPHILS 0.1 thou/uL (0.0-0.7); ABSOLUTE LYMPHOCYTES 1.3 thou/uL (0.8-5.3); ABSOLUTE MONOCYTES 1.1 thou/uL (0.0-1.2); ABSOLUTE NEUTROPHILS 8.6 thou/uL (1.6-8.1); BASOPHILS 0.3 %; EOSINOPHILS 0.8 %; HEMATOCRIT 34.1 % (37.0-47.0); HEMOGLOBIN 11.3 gm/dL (12.0-15.0); LYMPHOCYTES 11.4 %; MCH 31.6 pg (26.0-34.0); MCV 95.7 fL (80.0-100.0); MONOCYTES 10.3 %; MPV 9.5 fl. (7.2-11.1); NUCLEATED RBCS 0 /100WBC; PLATELET COUNT* 165 thou/uL (150-400); POLYS 77.2 %; RBC 3.56 mil/uL (4.20-5.00); RDW-CV 14.8 % (10.5-14.5); WBC 11.1 thou/uL (4.0-11.0)
[2020-11-16 07:12] LABS: CALCIUM 8.7 mg/dL (8.5-10.1); CREATININE 1.1 mg/dL (0.6-1.3); POTASSIUM 3.1 mmol/L (3.5-5.1)
[2020-11-16 08:00] VITALS: BP 118/35
[2020-11-16 12:00] VITALS: BP 107/50
[2020-11-16 16:34] VITALS: BP 125/45
[2020-11-16 19:36] VITALS: BP 114/41
[2020-11-17 03:06] LABS: GLYCOHEMOGLOBIN (HGB A1C) 10.6 % (4.8-5.6)
[2020-11-17 04:05] LABS: HEMATOCRIT 33.1 % (37.0-47.0); HEMOGLOBIN 10.9 gm/dL (12.0-15.0); MCH 31.3 pg (26.0-34.0); MCHC 32.8 g/dL (28.0-37.0); MCV 95.5 fL (80.0-100.0); MPV 9.1 fl. (7.2-11.1); RBC 3.47 mil/uL (4.20-5.00); RDW-CV 14.6 % (10.5-14.5)
[2020-11-17 04:20] LABS: CALCIUM 8.3 mg/dL (8.5-10.1); CREATININE 1.2 mg/dL (0.6-1.3); MAGNESIUM 1.3 mg/dL (1.8-2.4)
[2020-11-17 08:05] VITALS: BP 135/42
[2020-11-17 16:19] VITALS: BP 106/68
[2020-11-17 22:00] VITALS: BP 129/58
[2020-11-18] MEDS ORDERED: LIDOPATCH1 EACH TOP (07:41)
[2020-11-18] MEDS ORDERED: PREDNISONE 20 M20 MG PO (07:41)
[2020-11-18] MEDS ORDERED: TRAMADOL 50 MG50 MG PO (07:41)
[2020-11-18] MEDS ORDERED: ALLOPURINOL 10100 M3 PO (07:41)
[2020-11-18] MEDS ORDERED: NYAMYC15 GM TOP (07:41)
[2020-11-18 07:45] VITALS: BP 143/62
[2020-11-18 16:55] VITALS: BP 123/43
[2020-11-18 21:00] VITALS: BP 112/40
[2020-11-19 04:34] VITALS: BP 140/44
[2020-11-19 09:22] LABS: MAGNESIUM 1.6 mg/dL (1.8-2.4); POTASSIUM 3.3 mmol/L (3.5-5.1)
[2020-11-19 16:00] VITALS: BP 127/47
[2020-11-19 20:30] VITALS: BP 124/44
[2020-11-19 22:17] LABS: MAGNESIUM 1.4 mg/dL (1.8-2.4); POTASSIUM 3.9 mmol/L (3.5-5.1)
[2020-11-20] VITALS: BP 118/46
[2020-11-20 08:00] VITALS: BP 144/84
[2020-11-20 16:00] VITALS: BP 136/34
[2020-11-20 20:30] VITALS: BP 122/59
[2020-11-21] VITALS: BP 123/79
[2020-11-21 04:23] LABS: HEMATOCRIT 35.8 % (37.0-47.0); HEMOGLOBIN 11.8 gm/dL (12.0-15.0); MCHC 32.9 g/dL (28.0-37.0); MCV 94.4 fL (80.0-100.0); RBC 3.79 mil/uL (4.20-5.00); RDW-CV 15.1 % (10.5-14.5); WBC 11.6 thou/uL (4.0-11.0)
[2020-11-21 04:55] LABS: CALCIUM 8.7 mg/dL (8.5-10.1); CREATININE 1.4 mg/dL (0.6-1.3); MAGNESIUM 1.7 mg/dL (1.8-2.4); POTASSIUM 4.2 mmol/L (3.5-5.1)
[2020-11-21 08:05] VITALS: BP 142/44
[2020-11-21 12:00] VITALS: BP 146/75
[2020-11-21 16:00] VITALS: BP 143/74
[2020-11-22] VITALS: BP 110/49
[2020-11-22 08:05] VITALS: BP 126/70
[2020-11-22 17:05] VITALS: BP 167/72
[2020-11-22 20:00] VITALS: BP 154/58
[2020-11-23 07:55] VITALS: BP 150/89
[2020-11-23 08:00] VITALS: BP 143/67
[2020-11-23 08:52] VITALS: BP 143/67
== END 2020-11-23 13:40 | DRG 602 ==
LOC: M.ERS 01:10 → M.2W 05:18 → M.TBA-ER 05:18 → M.2W 13:07 → M.3W 11-16 15:58 → M.2W 11-17 09:27
PROVIDERS: Emergency Medicine; Internal Medicine; ADMIT Internal Medicine; ATTEND Internal Medicine
DX: L03.115 Cellulitis of right lower limb (principal); N17.0 Acute kidney failure with tubular necrosis; R65.11 Systemic inflammatory response syndrome (SIRS) of non-infectious origin with acute organ dysfunction; J96.11 Chronic respiratory failure with hypoxia; N30.00 Acute cystitis without hematuria; M10.071 Idiopathic gout, right ankle and foot; I11.0 Hypertensive heart disease with heart failure; E11.65 Type 2 diabetes mellitus with hyperglycemia; E78.5 Hyperlipidemia, unspecified; R26.89 Other abnormalities of gait and mobility; E83.42 Hypomagnesemia; I95.9 Hypotension, unspecified; J44.9 Chronic obstructive pulmonary disease, unspecified; E87.6 Hypokalemia; B35.6 Tinea cruris; I50.9 Heart failure, unspecified; Z20.822 Contact with and (suspected) exposure to COVID-19; Z86.718 Personal history of other venous thrombosis and embolism; Z86.711 Personal history of pulmonary embolism; Z90.710 Acquired absence of both cervix and uterus; Z79.01 Long term (current) use of anticoagulants; Z79.4 Long term (current) use of insulin; Z79.899 Other long term (current) drug therapy

== ENCOUNTER 2021-02-16 12:58 | Emergency (ER) | payer OTHER ==
[~2021-02-16] VITALS: Ht 147.3 cm; Wt 66.7 kg
[~2021-02-16 12:58] MED LIST changes: +ALLOPURINOL 10100 M3 PO; +LIDOPATCH1 EACH TOP; +NYAMYC15 GM TOP; +PERIDEX 0.12%473 M1 SWISH&SPIT; +PREDNISONE 20 M20 MG PO; +TRAMADOL 50 MG50 MG PO
[2021-02-16 16:13] VITALS: BP 122/72
[2021-02-16 16:16] LABS: INR 2.6; PROTIME 26.5 Seconds (9.20-11.50)
== END 2021-02-16 16:14 | disposition home or self-care (01) ==
LOC: M.ERS 12:58
PROVIDERS: Emergency Medicine
DX: R60.0 Localized edema (principal); M79.605 Pain in left leg; L53.9 Erythematous condition, unspecified; I11.0 Hypertensive heart disease with heart failure; I50.9 Heart failure, unspecified; J44.9 Chronic obstructive pulmonary disease, unspecified; Z86.718 Personal history of other venous thrombosis and embolism; Z79.899 Other long term (current) drug therapy; Z79.4 Long term (current) use of insulin; Z79.01 Long term (current) use of anticoagulants; Z90.711 Acquired absence of uterus with remaining cervical stump